=== PATIENT | male | born 1940 | race African-American/Black ===

== ENCOUNTER → 2017-08-27 | Outpatient (CLI) | payer BC, MEDICARE ==
--- NOTE | 2017-08-27 12:40 | KCIC ---
EXAM: Chest, 2 views. HISTORY: Atrial fibrillation. COMPARISON: 02/29/2016 FINDINGS: Frontal and lateral views of the chest are obtained. There is no infiltrate, effusion or pneumothorax. The heart is normal in size. There are few calcified granulomas. There is linear atelectasis or scarring within the left lower lung. IMPRESSION: No acute pulmonary finding. Electronically signed by: Eunice Aguillon MD (08/27/2017 12:37 PM) [id number]
== END | disposition home or self-care (01) ==
LOC: KCIC 11:30
PROVIDERS: ATTEND Internal Medicine Cardiovascular Disease
DX: I48.91 Unspecified atrial fibrillation (principal); J84.10 Pulmonary fibrosis, unspecified; E78.2 Mixed hyperlipidemia
CPT/HCPCS: 71020

== ENCOUNTER → 2018-11-04 | Outpatient (CLI) | payer BC ==
--- NOTE | 2018-11-04 16:16 | KCIC ---
CHEST PA LATERAL Clinical indications: Atrial fibrillation. Lung term amiodarone use. Comparison: February 29, 2016 and August 27, 2017. Findings: Old granulomatous disease is evident. No acute lung infiltrate or pleural effusion or pulmonary edema or lung mass or pneumothorax is seen. The heart size, pulmonary vasculature, mediastinum and both ct are unremarkable. The osseous structures appear intact. Impression: No acute radiographic abnormality is seen. Electronically signed by: Duane Espinoza MD (11/04/2018 4:12 PM) [place] [id number]
== END | disposition home or self-care (01) ==
LOC: KCIC 10:23
PROVIDERS: ATTEND Internal Medicine Cardiovascular Disease
DX: I48.91 Unspecified atrial fibrillation (principal); D71 Functional disorders of polymorphonuclear neutrophils; Z88.8 Allergy status to other drugs, medicaments and biological substances
CPT/HCPCS: 71046

== ENCOUNTER → 2020-12-10 | Outpatient (CLI) | payer MEDICARE ==
--- NOTE | 2020-12-10 11:58 | KCIC ---
Exam performed: 2 views of the chest. Indication: Reason: Unspecified A-fib, care home use amiodarone. / Spl. Instructions: / History: Date of Service: 12/10/2020 11:34 AM. Comparison : Two-view chest from 12/15/2019 Findings: PA and lateral radiographs of the chest reveal a normal cardiomediastinal contour. The lungs are gretel r. No pleural fluid is seen. The visualized osseous structures are unremarkable. Impression: No acute cardiopulmonary process seen. Electronically signed by: Tricia Irving MD (12/10/2020 11:56 AM) [id number]
== END ==
LOC: KCIC 11:30
PROVIDERS: ATTEND Internal Medicine Cardiovascular Disease
DX: I48.91 Unspecified atrial fibrillation (principal); Z79.899 Other long term (current) drug therapy
CPT/HCPCS: 71046

== ENCOUNTER → 2022-03-07 | Outpatient (CLI) | payer MEDICARE ==
--- NOTE | 2022-03-07 11:59 | KCIC ---
XR CHEST 2V History: Amiodarone monitoring. Comparison: 12/10/2020 Technique: PA and lateral chest radiographs. Findings: The lungs are adequately and symmectrically inflated. No airspace consolidation, pleural effusion or pneumothorax. Stable calcified pulmonary granulomata. The cardiomediastinal silhoutte and pulmonary v asculature are within normal limits. Soft tissues and osseous structures are unremarkable. Impression: 1. No acute cardiopulmonary process. Electronically signed by: Pelon Bailey MD (03/07/2022 11:57 AM) [id number]
== END ==
LOC: KCIC 10:17
PROVIDERS: ATTEND Internal Medicine Cardiovascular Disease
DX: J84.10 Pulmonary fibrosis, unspecified (principal); Z51.81 Encounter for therapeutic drug level monitoring; Z79.899 Other long term (current) drug therapy
CPT/HCPCS: 71046